=== PATIENT | female | born 1965 | race Caucasian/White ===

== ENCOUNTER 2016-12-08 12:52 | Emergency (ER) | payer MEDICAID ==
--- NOTE | 2016-12-08 13:47 | DIRPT ---
CLINICAL DATA: Tripped and fell over a rug at work earlier today, LEFT knee pain, swelling and bruising over patella EXAM: LEFT KNEE - COMPLETE 4+ VIEW COMPARISON: None FINDINGS: Osseous mineralization normal. Joint spaces preserved. Mild prepatellar soft tissue swelling. No acute fracture, dislocation, or bone destruction. No knee joint effusion. IMPRESSION: No acute osseous abnormalities. Mild prepatellar soft tissue swelling. Electronically Signed By: Reji King M.D. On: 12/08/2016 13:45
[2016-12-08 14:36] VITALS: BP 142/85; PULSE 82; TEMP 98; BMI 25.9
--- NOTE | 2016-12-08 14:48 | EDPRACDOC ---
- General Information Chief Complaint: Knee Pain Stated Complaint: FELL INJURED LT KNEE Time Seen by Provider: 12/08/16 14:30 Information Source: Patient Mode of Arrival: Car Home Medications: Home Medications Amlodipine [Norvasc] 10 mg PO DAILY #90 tab 08/28/16 Aspirin/Calcium Carbonate/Mag [Aspirin Buffered 325 mg Tab] 325 mg PO DAILY # 120 tablet 08/28/16 Butalb/Acetaminophen/Caffeine [Fioricet Tablet (50mg/325mg/40mg)] 1 - 2 tab PO Q4H PRN #30 tablet 08/28/16 Citalopram (anti-depressant) [Celexa] 40 mg PO HS #90 tablet 08/28/16 Hydrochlorothiazide 25 mg PO DAILY #90 tablet 08/28/16 Simvastatin 40 mg PO DAILY #90 tab 08/28/16 Cefdinir [Omnicef] 300 mg PO BID 09/29/16 Loratadine [Claritin] 10 mg PO DAILY 09/29/16 Valsartan [Diovan] 320 mg PO HS 09/29/16 Hydrocodone Bit/Acetaminophen [[place] 5-325 Tablet] 1 each PO Q4H #10 tab Meloxicam [Mobic] 7.5 mg PO BID #20 tab 12/08/16 Allergies/Adverse Reactions: Allergies Allergy/AdvReac Type Severity Reaction Status Date / Time No Known Allergies Allergy Verified 09/29/16 11:19 - History of Present Illness Onset: today HPI: PT PRESENTS TODAY WITH LEFT KNEE PAIN AFTER MECHANICAL FALL EARLIER TODAY. NO OTHER INJURY REPORTED. STATES LIMPING, BUT ABLE TO WALK. Knee Problem Location: Left Mechanism: Reports: Blunt Trauma Circumstances: Reports: Fall Relevant History: Reports: None Able to Bear Weight: Limited Pain Severity: Reports: Moderate Associated Signs & Symptoms: Reports: Swelling, Other (BRUISING) ED Past Medical History - History Reviewed Yes Nurses notes reviewed and agree except as marked - Patient Medical History Neurological History: Reports: Cerebrovascular Accident. Denies: Seizures, Dementia, Guillian-Spring Syndrome, Parkinson's, Multiple Sclerosis Cardiac History: Reports: Hypertension, Valvular Heart Disease. Denies: Congestive Heart Failure, Heart Attack, Syncope Respiratory History: Reports: COPD, Emphysema. Denies: Pulmonary Embolism GI/ History: Reports: Gastroesophageal Reflux Musculoskeletal History: Reports: Arthritis, Osteoarthritis Psychological History: Reports: Depression, Anxiety. Denies: Bipolar Disorder Surgical History: Denies: Hysterectomy, Tonsillectomy/Adnoidectomy - Family Medical History Reports: Hypertension, Diabetes, Cancer, Stroke, Cardiac Disorders - Social Medical History Smoking Status: Former smoker Social History: Reports: Marijuana Use EDM Review of Systems - Review of Systems ROS Negative Except as Marked: Yes All systems reviewed and were negative except as marked Constitutional: No Symptoms Reported Respiratory: No Symptoms Reported Cardiovascular: No Symptoms Reported Gastrointestinal: No Symptoms Reported Neurological: No Symptoms Reported Musculoskeletal: Knee Integumentary: Bruising - Physical Exam Constitutional: Alert (Awake), No apparent distress Oriented to: Time, Person, Place Last recorded Vital Signs: Last Vital Signs Temp 98.0 F 12/08/16 14:26 Pulse 82 12/08/16 14:26 Resp 20 12/08/16 14:26 BP 142/85 12/08/16 14:26 Pulse Ox 97 12/08/16 14:26 Oxygen Pulse Oxygen Saturation 97 O2 Device Room Air Oxygen Flow Rate Fraction of Inspired Oxygen ( FIO2) - HEENT Head: Normal Eye Exam: Normal Neck: Normal, Denies Pain, Midline - Respiratory/Cardiovascular Respiratory: Normal - CTA Cardiovascular: Normal - GI Palpation: Normal Tenderness: Non tender - Musculoskeletal Back: Normal Extremities: Other (NOTED BRUISING/SWELLING TO LEFT ANTERIOR PATELLA; SMALL AMOUNT OF FLUID NOTED; DISTAL PMS INTACT; FULL ROM W/OUT LAXIETY) - Integumentary Skin: Normal Lymphatics: Normal - Neurologic Cerebellar: Normal Mood Description: Normal Thought: Coherent Perception: Normal ED Knee Problem Phys Exam - Musculoskeletal Knee: Swelling, Limited ROM, Moderate Tenderness, Other (BRUISING) Knee Ligaments: Normal Knee Meniscus: Normal Thigh: Normal Lower Leg: Normal Distal Function/Circulation: Normal - Additional Information PT DECLINES CRUTCHES AND KNEE IMMOBILIZER Decision Time to Discharge: 14:47 - Departure Disposition: Home Condition: Good Final Diagnosis: Contusion of knee Instructions: RICE: Routine Care for Injuries Education/Counseling Given To: Patient Education/Counseling Given Regarding: Diagnosis, Treatment, Follow Up Referrals: Cortes Lindsey MD [Primary Care Provider] - One Week Prescriptions: Hydrocodone Bit/Acetaminophen [[place] 5-325 Tablet] 1 each PO Q4H #10 tab Meloxicam [Mobic] 7.5 mg PO BID #20 tab Additional Instructions: IF AFTER 1 WEEK OF CONSERVATIVE TREATMENT YOU CONTINUE TO HAVE PAIN, FOLLOW UP WITH PCP FOR POSSIBLE NEED OF OUTPATIENT MRI.
== END 2016-12-08 14:51 | disposition home or self-care (01) ==
LOC: EDMC 12:52
DX: S80.01XA Contusion of right knee, initial encounter (principal); W19.XXXA Unspecified fall, initial encounter
CPT/HCPCS: 99282

== ENCOUNTER 2016-12-14 11:33 | Emergency (ER) | payer MEDICAID ==
[2016-12-14 11:50] VITALS: TEMP 97.9; BMI 26.4
--- NOTE | 2016-12-14 12:18 | EDPRACDOC ---
- General Information Chief Complaint: Knee Pain Stated Complaint: LEFT KNEE PAIN Time Seen by Provider: 12/14/16 12:12 Information Source: Patient Mode of Arrival: Car Home Medications: Home Medications Amlodipine [Norvasc] 10 mg PO DAILY #90 tab 08/28/16 Aspirin/Calcium Carbonate/Mag [Aspirin Buffered 325 mg Tab] 325 mg PO DAILY # 120 tablet 08/28/16 Butalb/Acetaminophen/Caffeine [Fioricet Tablet (50mg/325mg/40mg)] 1 - 2 tab PO Q4H PRN #30 tablet 08/28/16 Citalopram (anti-depressant) [Celexa] 40 mg PO HS #90 tablet 08/28/16 Hydrochlorothiazide 25 mg PO DAILY #90 tablet 08/28/16 Simvastatin 40 mg PO DAILY #90 tab 08/28/16 Cefdinir [Omnicef] 300 mg PO BID 09/29/16 Loratadine [Claritin] 10 mg PO DAILY 09/29/16 Valsartan [Diovan] 320 mg PO HS 09/29/16 Hydrocodone Bit/Acetaminophen [[place] 5-325 Tablet] 1 each PO Q4H #10 tab Meloxicam [Mobic] 7.5 mg PO BID #20 tab 12/08/16 Hydrocodone Bit/Acetaminophen [Lortab 5/325] 1 tab PO Q4-6H PRN #15 tab Ibuprofen 600 mg PO Q6H PRN #20 tablet 12/14/16 Allergies/Adverse Reactions: Allergies Allergy/AdvReac Type Severity Reaction Status Date / Time No Known Allergies Allergy Verified 09/29/16 11:19 - History of Present Illness Onset: 7 days HPI: Pt states she fell on and was evaluated in ED. Pt states swelling went dwon until this morning when it swelled more and is painful. Denies numbness, leg or thigh pain. Knee Problem Location: Left Mechanism: Reports: Blunt Trauma Circumstances: Reports: Fall, Spontaneous Relevant History: Reports: None Able to Bear Weight: Limited Pain Severity: Reports: Mild, Moderate Associated Signs & Symptoms: Reports: Swelling Other History: Pt states take half hydrocodone at a time and seem be be working for pain. ED Past Medical History - History Reviewed Yes Nurses notes reviewed and agree except as marked - Patient Medical History Neurological History: Reports: Cerebrovascular Accident. Denies: Seizures, Dementia, Guillian-[place] Syndrome, Parkinson's, Multiple Sclerosis Cardiac History: Reports: Hypertension, Valvular Heart Disease. Denies: Congestive Heart Failure, Heart Attack, Syncope Respiratory History: Reports: COPD, Emphysema. Denies: Pulmonary Embolism GI/ History: Reports: Gastroesophageal Reflux Musculoskeletal History: Reports: Arthritis, Osteoarthritis Psychological History: Reports: Depression, Anxiety. Denies: Bipolar Disorder Surgical History: Denies: Hysterectomy, Tonsillectomy/Adnoidectomy - Family Medical History Reports: Hypertension, Diabetes, Cancer, Stroke, Cardiac Disorders - Social Medical History Smoking Status: Never smoker Social History: Reports: Marijuana Use ETOH: Social Substance Abuse: None EDM Review of Systems - Review of Systems Constitutional: No Symptoms Reported. negative: Fever, Chills, Weakness, Fatigue, Loss of Appetite Respiratory: No Symptoms Reported. negative: Cough, Brassy Cough, Barky Cough, Shortness of Breath, Wheezing, Hemoptysis Cardiovascular: No Symptoms Reported. negative: Chest Pain, Palpitations, Syncope, Edema, Orthopnea, PND, Skin Mottling, Cyanosis Neurological: No Symptoms Reported. negative: Headache, Dizziness, Seizure, Numbness, Weakness, Speech Difficulty, Gait Difficulty Musculoskeletal: Knee Integumentary: Bruising Allergic/Immunologic: No Symptoms Reported. negative: Hives, Itching Hematologic: No Symptoms Reported. negative: Lymphadenopathy, Easy Bruising, Easy Bleeding Psychiatric: No Symptoms Reported. negative: Anxiety, Depression, Hallucinations, Insomnia, Suicidal - Physical Exam Constitutional: Alert Oriented to: Time, Person, Place Last recorded Vital Signs: Last Vital Signs Temp 97.9 F 12/14/16 11:49 Pulse 120 H 12/14/16 11:49 Resp 20 12/14/16 11:49 BP 161/110 H 12/14/16 11:49 Pulse Ox Oxygen Pulse Oxygen Saturation O2 Device Room Air Oxygen Flow Rate Fraction of Inspired Oxygen ( FIO2) - HEENT Head: Normal ( normocephalic) - Respiratory/Cardiovascular Respiratory: Normal - CTA (BBS clear to auscultation without adventitious sounds ) Cardiovascular: Normal (RRR without murmur, gallop or rub) - Musculoskeletal Extremities: Normal (Normal tone, Pulses 2+ No cyanosis or edema, FROM) - Integumentary Skin: Normal, Warm, Dry Lymphatics: Normal (no adenopathy) - Neurologic Memory Impaired: Normal Motor Function: Normal (Normal tone, Pulses 2+ No cyanosis or edema, FROM) Mood Description: Normal Perception: Normal ED Knee Problem Phys Exam - Musculoskeletal Knee: Swelling, Other (prepatella swelling with ecchymosis) Knee Ligaments: Normal Knee Meniscus: Normal Thigh: Normal Lower Leg: Normal Distal Function/Circulation: Normal - Integumentary Skin: Ecchymosis Lymphatics: Normal - Differential Diagnosis Contusion, Patella Fracture, Sprain - Diagnostic Imaging Knee Image interpreted by: MD (Dr Velez) Negative but swelling noted - Additional Information Informed pt of risk occult fx Decision Time to Discharge: 13:30 - Departure Disposition: Home Condition: Good Final Diagnosis: Prepatellar bursitis of left knee, Sprain of knee Instructions: RICE: Routine Care for Injuries, Knee Sprain (ED), Knee Bursitis (ED) Education/Counseling Given To: Patient Education/Counseling Given Regarding: Diagnosis, Treatment, Follow Up Referrals: Cortes Lindsey MD [Primary Care Provider] - One Week Henry Avery MD [Staff Physician] - One Week Prescriptions: Hydrocodone Bit/Acetaminophen [Lortab 5/325] 1 tab PO Q4-6H PRN #15 tab PRN Reason: Pain Ibuprofen 600 mg PO Q6H PRN #20 tablet PRN Reason: Pain Additional Instructions: Return for worse or different symptoms.
[2016-12-14 12:39] VITALS: BP 147/90; PULSE 85
--- NOTE | 2016-12-14 14:35 | DIRPT ---
CLINICAL DATA: Pain and swelling. Fall . Initial encounter. EXAM: LEFT KNEE - COMPLETE 4+ VIEW COMPARISON: 12/08/2016 FINDINGS: No acute fracture or dislocation. No joint effusion. Prepatellar soft tissue swelling is again identified. IMPRESSION: No acute osseous abnormality. Electronically Signed By: Carlos Horta M.D. On: 12/14/2016 14:32
== END 2016-12-14 13:51 | disposition home or self-care (01) ==
LOC: EDMC 11:33
DX: M70.42 Prepatellar bursitis, left knee (principal); S83.92XA Sprain of unspecified site of left knee, initial encounter; W19.XXXA Unspecified fall, initial encounter; I10 Essential (primary) hypertension; J44.9 Chronic obstructive pulmonary disease, unspecified; K21.9 Gastro-esophageal reflux disease without esophagitis; F12.10 Cannabis abuse, uncomplicated; Z79.899 Other long term (current) drug therapy
CPT/HCPCS: 99282